=== PATIENT | female | born 1965 | race Two or more races ===

== ENCOUNTER 2018-07-09 05:31 | Observation (INO) | payer OTHER ==
[2018-07-09] MEDS ORDERED: LACTATED RINGER'S 1,000 ML IV* (06:00)
[2018-07-09] MEDS ORDERED: CEFAZOLIN 1 GM INJ (07:00)
[2018-07-09] MEDS: BUPIVACAINE 0.25%/EPI (SDV) 30 ML INJ (08:30)
[2018-07-09] MEDS ORDERED: HYDROmorphONE 1 MG/5 ML IV SYRINGE IV (08:30)
[2018-07-09] MEDS ORDERED: MEPERIDINE 25 MG INJ IV (08:30)
[2018-07-09] MEDS ORDERED: DIPHENHYDRAMINE 50 MG INJ IV (08:30)
[2018-07-09] MEDS: GELATIN SIZE 100 SPONGE (08:34)
[2018-07-09] MEDS: POLYMYXIN/BACITRACIN 1L IRRIG (08:34)
[2018-07-09] MEDS: THROMBIN 5000 UNIT VIAL (08:35)
[2018-07-09] MEDS: HEMOSTATIC MATRIX SYG ZFS (09:02)
[2018-07-09] MEDS: BETAMET NA PHOS/AC(6 MG/ML) 5ML INJ (10:32)
[2018-07-09] MEDS ORDERED: NALOXONE (0.4 MG/ML) INJ IV (11:30)
[2018-07-09] MEDS ORDERED: PROCHLORPERAZINE 10 MG TAB PO (11:30)
[2018-07-09] MEDS ORDERED: NACL 0.9% 3 ML SYG IV (11:30)
[2018-07-09] MEDS ORDERED: ACETAMINOPHEN 325 MG TAB PO (11:30)
[2018-07-09] MEDS ORDERED: ONDANSETRON 4 MG INJ IV (11:30)
[2018-07-09] MEDS: HYDROmorphONE 1 MG/5 ML IV SYRINGE IV ×2 (11:44→11:53)
[2018-07-09] MEDS: ONDANSETRON 4 MG INJ IV (11:45)
[2018-07-09] MEDS: CEFAZOLIN 1 GM/50 ML (PMX) 50 ML IVPB ×3 (12:06→23:36)
[2018-07-09] MEDS: CEFAZOLIN 2 GM/50 ML (PMX) 50 ML IVPB (12:35)
[2018-07-09] MEDS: LACTATED RINGER'S 1,000 ML IV (13:55)
[2018-07-09] MEDS: HYDROCODONE/APAP (5/325) TAB PO ×3 (16:22→21:35)
[2018-07-09] MEDS ORDERED: MIDAZOLAM 1 MG/ML 2 ML INJ (17:06)
[2018-07-09] MEDS ORDERED: ONDANSETRON 4 MG INJ (17:06)
[2018-07-09] MEDS ORDERED: PROPOFOL 20 ML ×3 (17:06)
[2018-07-09] MEDS ORDERED: PROPOFOL 0 ML (17:06)
[2018-07-09] MEDS ORDERED: ROCURONIUM 50 MG INJ ×2 (17:06)
[2018-07-09] MEDS ORDERED: EPHEDrine SULFATE 50 MG/5 ML SYG (17:06)
[2018-07-09] MEDS ORDERED: METOCLOPRAMIDE 10 MG INJ (17:06)
[2018-07-09] MEDS ORDERED: LIDOCAINE 100 MG SYRINGE (17:06)
[2018-07-09] MEDS ORDERED: SUCCINYLCHOLINE CHLORIDE 100 MG/5 ML SYG IV (17:06)
[2018-07-09] MEDS ORDERED: ACETAMINOPHEN 1000MG/100ML IV 100 ML (17:06)
[2018-07-09] MEDS ORDERED: SUGAMMADEX SODIUM 200 MG/2 ML VIAL IV (17:06)
[2018-07-09] MEDS ORDERED: DEXAMETHASONE 4 MG/ML 1 ML INJ (17:06)
[2018-07-10] MEDS: HYDROmorphONE 0.5 MG/0.5 ML SYG IV (00:06)
[2018-07-10] MEDS: CEFAZOLIN 1 GM/50 ML (PMX) 50 ML IVPB (05:25)
[2018-07-10] MEDS: HYDROCODONE/APAP (5/325) TAB PO ×2 (05:26→09:04)
== END 2018-07-10 13:55 | disposition home or self-care (01) ==
LOC: SDS 05:31 → REC 11:20 → MS1 12:52
DX: M48.061 Spinal stenosis, lumbar region without neurogenic claudication (principal); M54.17 Radiculopathy, lumbosacral region
CPT/HCPCS: 63047; 72100; 88304; 97116; 97161; 97530